=== PATIENT | female | born 1995 | race Two or more races ===

== ENCOUNTER 2025-01-30 10:13 | Day surgery (SDC) | payer OTHER ==
[2025-01-23 11:21] VITALS: BP 126/84
[~2025-01-30 10:13] MED LIST: CATAFLAN; LEVSIN/SL0.125 MG SL; PEPCID40 MG PO; PHENERGAN25 MG PO
[2025-01-30] MEDS ORDERED: POVIDONE-IODINE 118 ML BOTT TOP ONE (16:46)
[2025-01-30] MEDS ORDERED: SUGAMMADEX SODIUM 200 MG/2 ML VIAL IV ONE (18:34)
[2025-01-30] MEDS ORDERED: KETOROLAC TROMETHAMINE 30 MG VIAL IU ONE (18:45)
[2025-01-30] MEDS ORDERED: ONDANSETRON HCL 2 MG/ML VIAL IV PRN (18:45)
[2025-01-30] MEDS ORDERED: FAMOTIDINE/PF 20 MG/2 ML VIAL IV ONE (18:45)
[2025-01-30] MEDS ORDERED: KETOROLAC TROMETHAMINE 30 MG VIAL ONE (20:45)
[2025-01-30] MEDS ORDERED: FAMOTIDINE/PF 20 MG/2 ML VIAL ONE (20:45)
== END 2025-01-30 21:35 | disposition home or self-care (01) ==
LOC: CIR.AMB 10:13
PROVIDERS: ATTEND General Practice
DX: N84.0 Polyp of corpus uteri (principal); N93.8 Other specified abnormal uterine and vaginal bleeding; Z91.018 Allergy to other foods

== ENCOUNTER 2025-05-12 20:21 | Emergency (ER) | payer OTHER ==
[~2025-05-12] VITALS: Ht 154.9 cm; Wt 172.8 kg
[2025-05-12] MEDS ORDERED: ACETAMINOPHEN 500 MG GEL..CAP PO ONE ×2 (22:39→22:45)
[2025-05-12] MEDS ORDERED: ORPHENADRINE CITRATE 30 MG/ML AMPUL ONE (22:39)
[2025-05-12] MEDS ORDERED: DEXAMETHASONE SODIUM PHOSPHATE 4 MG/ML VIAL ONE (22:39)
[2025-05-12] MEDS ORDERED: KETOROLAC TROMETHAMINE 60 MG VIAL IM ONE ×2 (22:39→22:45)
[2025-05-12] MEDS ORDERED: ORPHENADRINE CITRATE 30 MG/ML AMPUL IM ONE (22:45)
[2025-05-12] MEDS ORDERED: DEXAMETHASONE SODIUM PHOSPHATE 4 MG/ML VIAL IV ONE (22:45)
[2025-05-12] MEDS ORDERED: IBU400 MG PO (23:52)
[2025-05-12] MEDS ORDERED: NORFLEX100MG PO (23:52)
== END 2025-05-13 00:30 | disposition home or self-care (01) ==
LOC: ER 20:21
DX: G89.11 Acute pain due to trauma (principal); M79.661 Pain in right lower leg; Z91.018 Allergy to other foods